=== PATIENT | female | born 1955 | race Caucasian/White ===

== ENCOUNTER 2018-01-01 10:20 | Inpatient (IN) ==
[2017-12-22 17:12] LABS: Appearance,Urine HAZY; Bilirubin,Urine NEG (NEG); Color,Urine YELLOW; Glucose,Urine (UA) NEGATIVE (NEG); Leukocyte Esterase,Urine NEG /uL (NEG); Protein,Urine NEG (NEG); Specific Gravity,Urine 1.018 (1.000-1.035); Urine Blood NEG mg/dL (<0.03)
[2017-12-22 18:04] LABS: Basophils # (Auto) 0 K/mcL (0.0-0.3); Basophils % (Auto) 0.4 % (0.0-2.0); Eosinophils # (Auto) 0.3 K/mcL (0.0-0.7); Eosinophils % (Auto) 2.8 % (0.0-7.0); Granulocytes % (Auto) 57.4 % (38.0-78.0); Lymphocytes # (Auto) 3.4 K/mcL (1.5-4.8); Lymphocytes % (Auto) 33.6 % (15.5-49.0); Mean Cell Volume 93.3 fL (80.0-100.0); Mean Corpuscular HGB Conc 33.2 g/dL (31.0-36.0); Monocytes # (Auto) 0.6 K/mcL (0.1-0.9); Monocytes % (Auto) 5.8 % (1.0-12.0); Platelet Count 222 K/mcL (140-440); RBC 4.99 M/mcL (4.00-5.20); Red Cell Distribution Width 13.9 % (11.5-14.5)
[2017-12-22 18:14] LABS: Blood Urea Nitrogen 13 mg/dl (8-23)
[~2018-01-01 10:20] MED LIST: 0.9 % SODIUM CHLORIDE 9 ML, KETOROLAC 30 MG, ROPIVACAINE HCL/PF 49.5 ML, EPINEPHrine 0.... IJ SCH; ACETAMINOPHEN 500 MG TABLET PO SCH; PREGABALIN 75 MG CAPSULE PO SCH; ceFAZolin 1 GM VIAL IV SCH; oxyCODONE 10 MG TAB.ER.12H PO SCH
[2018-01-01] MEDS ORDERED: MIDAZOLAM 5 MG/5 ML VIAL ONE (13:35)
[2018-01-01] MEDS ORDERED: PROPOFOL 200 MG/20 ML VIAL IV ONE (13:35)
[2018-01-01] MEDS ORDERED: LIDOCAINE HCL/PF 100 MG/5 ML SYRINGE IV ONE (13:35)
[2018-01-01] MEDS ORDERED: ONDANSETRON 4 MG/2 ML VIAL ONE (13:35)
[2018-01-01] MEDS ORDERED: DEXAMETHASONE 10 MG/ML VIAL ONE (13:35)
[2018-01-01] MEDS ORDERED: IPRATROPIUM/ALBUTEROL 3 ML AMPUL.NEB NEB PRN (14:19)
[2018-01-01] MEDS ORDERED: ONDANSETRON 4 MG/2 ML VIAL IV PRN ×2 (14:19→15:08)
[2018-01-01] MEDS ORDERED: FLUMAZENIL 0.1 MG/ML ML IV PRN (14:19)
[2018-01-01] MEDS ORDERED: fentaNYL 100 MCG/2 ML VIAL IV PRN (14:19)
[2018-01-01] MEDS ORDERED: LACTATED RINGERS 250 ML IV PRN (14:19)
[2018-01-01] MEDS ORDERED: BENZOCAINE/MENTHOL 1 LOZENGE PO PRN ×2 (14:19→15:08)
[2018-01-01] MEDS ORDERED: diphenhydrAMINE 50 MG/ML VIAL IV PRN (14:19)
[2018-01-01] MEDS ORDERED: NALOXONE HCL 0.4 MG/ML VIAL IV PRN (14:19)
[2018-01-01] MEDS ORDERED: ACETAMINOPHEN 1,000 MG/100 ML BOTTLE IV ONE (14:19)
[2018-01-01] MEDS ORDERED: PROMETHAZINE 25 MG/ML VIAL IV PRN (14:19)
[2018-01-01] MEDS ORDERED: MEPERIDINE 25 MG/ML SYRINGE IV PRN (14:19)
[2018-01-01] MEDS ORDERED: LACTATED RINGERS 1,000 ML IV SCH (14:30)
[2018-01-01] MEDS ORDERED: GENTAMICIN SULFATE 800 MG/20 ML VIAL IR ONE (14:41)
[2018-01-01] MEDS ORDERED: HYDROmorphone 2 MG/ML VIAL IV PRN (15:08)
[2018-01-01] MEDS ORDERED: ACETAMINOPHEN 325 MG TABLET PO PRN (15:08)
[2018-01-01] MEDS ORDERED: BISACODYL 10 MG SUPP.RECT PR PRN (15:08)
[2018-01-01] MEDS ORDERED: POLYETHYLENE GLYCOL 3350 17 GM PACKET PO PRN (15:08)
[2018-01-01] MEDS ORDERED: KETOROLAC 15 MG/ML VIAL IV PRN (15:08)
[2018-01-01] MEDS ORDERED: MAGNESIUM HYDROXIDE 30 ML ORAL.SUSP PO PRN (15:08)
[2018-01-01] MEDS ORDERED: TRANEXAMIC ACID 1,000 MG/10 ML VIAL IV SCH (15:08)
[2018-01-01] MEDS ORDERED: FLEETS ADULT ENEMA PR PRN (15:08)
--- NOTE | 2018-01-01 15:08 | Brief Operative Note ---
Date of procedure: 01/01/18 Pre-op diagnosis: left hip djd Post-op diagnosis: same Procedure: left harlan cemented Grafts/Implants: Yes Anesthesia: GETA Surgeon: Sonny Bush Tobacco Sampler: Sushant Escobedo Estimated blood loss (cc): 50 Specimens Removed/Pathology: none sent Condition: stable Disposition: PACU
[2018-01-01] MEDS ORDERED: HYDROcodone/APAP 10/325MG TABLET PO PRN (15:11)
[2018-01-01] MEDS ORDERED: VARENICLINE TARTRATE 1 MG TABLET PO SCH (15:15)
[2018-01-01] MEDS ORDERED: DEXTROSE 5%-1/2NS 1,000 ML IV SCH (15:15)
--- NOTE | 2018-01-01 15:43 | XRay Report ---
CLINICAL INFORMATION: Post-Op Total Hip COMPARISON: None. FINDINGS: [Left total hip prostheses is anatomically aligned. Older right total hip prostheses also anatomically aligned without evidence of loosening or infection. No osseous abnormality. Soft tissue swelling the surgical site as expected IMPRESSION: Negative Interpreted and Authenticated by: Ry Muñoz 01/01/18
--- NOTE | 2018-01-01 15:49 | Operative Note ---
DATE OF OPERATION: 01/01/2018 PREOPERATIVE DIAGNOSIS: Left hip degenerative arthritis, severe. POSTOPERATIVE DIAGNOSIS: Left hip degenerative arthritis, severe. PROCEDURE: Left superior approach total hip arthroplasty. SURGEON: Sonny Bush MD WAREHOUSE SHIPPING ASSOCIATE: Sushant Escobedo PA-C ANESTHESIA: General LMA anesthesia. COMPLICATIONS: None. IMPLANTS: Cemented stem from ODC and cementless cup, neutral hooded liner 10 degree as well as a 36 mm head and a neutral neck length. ESTIMATED BLOOD LOSS: About 50 mL DESCRIPTION OF PROCEDURE: The patient was brought to the operating room and put to sleep with general LMA anesthesia. Once asleep, the patient had the left hip sterilely prepped and draped in the usual sterile fashion. Once performed, we then put had a timeout, confirmed the operative site by initials, consent form and x-ray. In the lateral position Ioban was placed on the skin and we made a superior approach to the hip. Once done, we then exposed the superior capsule and this was released as well as the piriformis and obturator internus. The hip was dislocated and the neck cut at 32 mm from the center of hip rotation was created. We subluxed the hip anteriorly and reamed up to the size of 54 cup, a 54 cup with a 25 mm screw was placed with good purchase. A 10 degree hooded liner was placed posterior inferiorly just for additional stability. We irrigated thoroughly and then broached the hip up to the size of 12, trialed the size 12 with a standard neck length and this seemed to look very good on x-ray, both position and size. We put a canal restrictor, thoroughly washed the canal, placed cement and then cemented into place the size 12 stem. We irrigated thoroughly, placed a 36 mm head with a neutral neck length. We re-reduced the hip; it was very stable. We irrigated thoroughly and then closed the wound with Stratafix after injecting the soft tissues postoperatively with Marcaine and the post-inject formula. The skin was closed with Stratafix as well as adhesive closure. The patient tolerated this well. The patient left the operating room in good condition. RBH:van Job ID: [id number] Doc ID: [id number] Sonny Bush MD
--- NOTE | 2018-01-01 16:22 | XRay Report ---
CLINICAL INFORMATION: LEFT TOTAL HIP ARTHROPLASTY COMPARISON: None. FINDINGS: Intraoperative film shows shows left hip prosthetic in acetabulum near-anatomic alignment. Left femoral neck template is also anatomically aligned. The older right hip prostheses remains anatomically aligned without loosening or infection. No osseous abnormality IMPRESSION: Negative Interpreted and Authenticated by: Ry Muñoz 01/01/18
[2018-01-01] MEDS: 0.45 % SODIUM CHLORIDE 1,000 ML IV SCH (16:24)
[2018-01-01] MEDS ORDERED: TEMAZEPAM 15 MG CAPSULE PO PRN (21:00)
[2018-01-01] MEDS ORDERED: SENNOSIDES 1 TABLET PO SCH (21:00)
[2018-01-01] MEDS: ceFAZolin 1 GM VIAL IV SCH (21:21)
[2018-01-01] MEDS: HYDROcodone/APAP 10/325MG TABLET PO PRN (21:22)
[2018-01-01] MEDS: DOCUSATE SODIUM 100 MG CAPSULE PO SCH (21:22)
[2018-01-01] MEDS: ASPIRIN 325 MG ENTERIC COATED TABLET PO SCH (21:22)
[2018-01-01] MEDS: 0.9 % SODIUM CHLORIDE 10 ML SYRINGE IV SCH (21:24)
[2018-01-02] MEDS: HYDROcodone/APAP 10/325MG TABLET PO PRN ×3 (01:21→12:38)
[2018-01-02] MEDS: 0.45 % SODIUM CHLORIDE 1,000 ML IV SCH ×2 (01:31→12:38)
[2018-01-02] MEDS: 0.9 % SODIUM CHLORIDE 10 ML SYRINGE IV SCH (05:14)
[2018-01-02] MEDS: ceFAZolin 1 GM VIAL IV SCH (05:14)
--- NOTE | 2018-01-02 07:43 | Orthopedic Progress Note ---
Subjective Patient information: Note initiated : 01/02/18 at 7:42 am Service Date, if different from initiated Date: [] Patient: Homa Petit 62 y/o F admitted on 01/01/18 for Left Total Hip Arthroplasty. Chief Complaint: [Pt is stable this morning on post operative day 1 without any significant concerns or complaints. Patients vital signs have remained stable. Patients dressing is dry and is grossly intact from a neurovascular and motor standpoint. Patients 10 point ROS is otherwise negative. ] Objective Vital signs: Vital Signs Temp Pulse Resp BP BP Pulse Ox 01/02/18 04:00 97.8 F 53 L 18 117/72 93 01/02/18 00:00 97.6 F 56 L 18 122/76 94 01/01/18 20:00 97.3 F 57 L 18 120/73 93 01/01/18 17:56 127/81 94 01/01/18 17:32 134/80 91 01/01/18 17:18 113/61 97 01/01/18 16:48 104/61 96 01/01/18 16:33 106/63 96 01/01/18 16:17 137/75 97 01/01/18 16:03 115/63 98 01/01/18 15:51 96.6 F L 52 L 16 116/65 96 01/01/18 15:40 96.7 F L 57 L 13 111/62 92 01/01/18 15:30 96.3 F L 52 L 15 108/54 100 01/01/18 15:20 96.1 F L 75 17 94/60 100 01/01/18 15:15 59 L 15 105/63 97 01/01/18 15:10 72 17 116/64 97 01/01/18 15:09 97.2 F 62 16 127/71 97 01/01/18 10:36 97.9 F 20 145/69 95 Intake and Output 01/01/18 01/02/18 01/02/18 21:59 05:59 13:59 Intake Total 1949 1735 / 1735 Output Total Balance 1948 1735 / 1735 Intake: IV 910 / 910 Sodium Chloride 0.45% 1,000 ml 910 / 910 @ 100 mls/hr IV .Q10H [facility] Rx#: [id number] Oral 825 / 825 IV - Manual Only 1949 Output: # of times incontinent of urine Other: # Voids 2 Weight 230 lb Intake & Output: Intake & Output 01/01/18 01/02/18 01/02/18 21:59 05:59 13:59 Intake Total 1949 1735 / 1735 Output Total Balance 1948 / 1948 1735 / 1735 Weight 230 lb Intake: IV 910 / 910 Sodium Chloride 0.45% 1,000 ml 910 / 910 @ 100 mls/hr IV .Q10H [facility] Rx#: [id number] Oral 825 / 825 IV - Manual Only 1949 Output: # of times incontinent of urine Other: # Voids 2 Incision: Yes healing Incision clean and dry: Yes Dressing: Yes clean Weight bearing status: full Neurological exam IM: Yes motor sensory intact, Yes neurovascular intact Extremities exam IM: Yes Foot pink and warm, Yes neurovascular intact - Labs CBC & BMP: 01/02/18 04:12 12/22/17 15:33 Labs: Orthopedic Labs 12/22/17 15:33 PT 12.2 INR 0.9 APTT 31 01/02/18 12/22/17 04:12 15:34 Hgb 15.5 H Hct 39.8 46.6 Assessment and Plan (1) Hx of total hip arthroplasty The patient has been educated regarding dressing care, Physical Therapy recommendations, home exercises, restrictions, and follow up appointments. The patient has had all necessary DME prescribed. The patient has remained relatively stable during their hospital course. Leave Dermabond patch intact until followup Status: Acute
--- NOTE | 2018-01-02 07:46 | Discharge Summary ---
Ortho Discharge - [facility] - Patient Instructions Diet: Regular Diet Activity: activity as tolerated, weight bearing as tolerated Total Hip Protocol: Follow activity instructions as provided by Physical Therapy. Dressing Care: May shower in 2 days - Problem Maintenance (1) Hx of total hip arthroplasty Status: Acute - Follow Up Plan Follow Up Appointments: Sushant Escobedo PA-C [Physician Senior Marketing Data Analyst] - 01/16/18 3:00 pm Disposition: Home, Self-Care Prognosis: Good Rehab Potential: Good I certify that the patient requires SNF services: No Overall status at discharge: patient is progressing back to baseline - Orders For Discharge Prescriptions: Aspirin [Ecotrin] 325 mg PO BID #60 tab.ec Docusate Sodium [Colace] 100 mg PO BID #60 cap HYDROcodone/APAP 10/325MG [Nenzel 10-325Mg] 1 - 2 tab PO Q4HP PRN #75 tab PRN Reason: Pain Level 3-6
[2018-01-02] MEDS: DOCUSATE SODIUM 100 MG CAPSULE PO SCH (08:20)
[2018-01-02] MEDS: ASPIRIN 325 MG ENTERIC COATED TABLET PO SCH (08:20)
[2018-01-02] MEDS ORDERED: HYDROCHLOROTHIAZIDE 25 MG TABLET PO SCH (09:00)
[2018-01-02] MEDS ORDERED: cloNIDine HCL 0.1 MG TABLET PO SCH (09:00)
[2018-01-02] MEDS ORDERED: amLODIPine 5 MG TABLET PO SCH (09:00)
[2018-01-02] MEDS ORDERED: METOPROLOL TARTRATE 50 MG TABLET PO SCH (09:00)
[2018-01-02] MEDS ORDERED: ATORVASTATIN 20 MG TABLET PO SCH (09:00)
== END 2018-01-02 13:00 | disposition home or self-care (01) | DRG 470 ==
LOC: MEDSUR 10:20
PROVIDERS: ADMIT Orthopaedic Surgery; ATTEND Orthopaedic Surgery